=== PATIENT | male | born 1990 | race Caucasian/White ===

== ENCOUNTER 2019-06-05 22:15 | Emergency (ER) | payer SELFPAY ==
--- NOTE | 2019-06-05 22:34 | EDM.PDOC ---
ED HPI GENERAL MEDICAL PROBLEM - General Chief Complaint: ENT Problem Stated Complaint: Throat pain, dizziness Time Seen by Provider: 06/05/19 22:20 Source of Information: Reports: Patient History Limitations: Reports: No Limitations - History of Present Illness INITIAL COMMENTS - FREE TEXT/NARRATIVE: Patient presents to ER with complaints of a sore throat for the last 24 hours. Has had fevers today. States difficult to swallow, drank root beer as he read somewhere that would help but got no relief. He admits to mild sinus congestion and ear pain. Chest feels tight. No cough or wheezing. Has been exposed "all week to influenza B" in the household he is staying at. Onset: Gradual Duration: Hour(s): Location: Reports: Head, Chest Quality: Reports: Burning Severity: Moderate Improves with: Reports: None Worsens with: Reports: Eating Associated Symptoms: Reports: Fever/Chills, Shortness of Breath. 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 [No Known Home Meds] 06/05/19 [History] Past Medical History - Past Health History Medical/Surgical History: Denies Medical/Surgical History Social & Family History - Tobacco Use Smoking Status *Q: Current Every Day Smoker ED ROS ENT - Review of Systems Review Of Systems: See Below Constitutional: Reports: Fever, Chills, Malaise, Fatigue. Denies: Weakness, Decreased Appetite HEENT: Reports: Ear Pain, Sinus Problem, Throat Pain Respiratory: Reports: Shortness of Breath, Pleuritic Chest Pain. Denies: Cough Cardiovascular: Denies: Chest Pain, Edema, Lightheadedness Endocrine: Reports: Fatigue GI/Abdominal: Denies: Abdominal Pain, Nausea, Vomiting : Reports: No Symptoms Musculoskeletal: Reports: No Symptoms Skin: Reports: No Symptoms Neurological: Reports: No Symptoms Psychiatric: Reports: No Symptoms ED EXAM, ENT - Physical Exam Exam: See Below Exam Limited By: No Limitations General Appearance: Alert, WD/WN, No Apparent Distress Ears: Normal External Exam, Normal TMs Nose: Normal Inspection, Normal Mucousa, Nasal Discharge Mouth/Throat: Pharyngeal Erythema, Tonsillar Swelling Head: Normocephalic Neck: Normal Inspection, Supple, Lymphadenopathy (L), Lymphadenopathy (R) Respiratory/Chest: No Respiratory Distress, Lungs Clear, Normal Breath Sounds Cardiovascular: Regular Rate, Rhythm Neurological: Alert, Oriented Skin: Warm, Dry Course - Vital Signs Last Recorded V/S: Last Vital Signs Temp 99.3 F 06/05/19 22:15 Pulse 116 H 06/05/19 22:15 Resp 16 06/05/19 22:15 BP 130/97 H 06/05/19 22:15 Pulse Ox 96 06/05/19 22:15 - Orders/Labs/Meds Orders: Active Orders 24 hr Category Date Time Status INFLUENZA A+B AG SCREEN [RM] Stat Lab 06/05/19 22:32 Received Labs: Laboratory Tests 06/05/19 Range/Units 22:30 POC Group A Strep Rpd Positive H (NEGATIVE) - Re-Assessments/Exams Free Text/Narrative Re-Assessment/Exam: 06/05/19 23:01 Positive strep screen, influenza negative. Departure - Departure Time of Disposition: 23:02 Disposition: Home, Self-Care 01 Condition: Fair Clinical Impression: Strep pharyngitis - Discharge Information *PRESCRIPTION DRUG MONITORING PROGRAM REVIEWED*: No *COPY OF PRESCRIPTION DRUG MONITORING REPORT IN PATIENT [place]STA: No Instructions: Strep Throat Forms: ED Department Discharge Additional Instructions: 1. rest 2. Push fluids 3. Alternate tylenol with ibuprofen for fever or discomfort 4. Cepacol lozenges for discomfort 5. Zithromax 250 mg- 2 tabs tonight, one tab daily for 4 days 6. Follow up with PCP if persisting concerns. Sepsis Event Note - Evaluation Sepsis Screening Result: No Definite Risk - Focused Exam Vital Signs: Vital Signs Temp Pulse Resp BP Pulse Ox 06/05/19 22:15 99.3 F 116 H 16 130/97 H 96 Date Exam was Performed: 06/05/19 Time Exam was Performed: 22:52 - My Orders Last 24 Hours: My Active Orders 06/05/19 22:32 INFLUENZA A+B AG SCREEN [RM] Stat - Assessment/Plan Last 24 Hours: My Active Orders 06/05/19 22:32 INFLUENZA A+B AG SCREEN [RM] Stat
[2019-06-05] MEDS ORDERED: Take Home: Azithromycin 250 MG, 2 Tab Pack PO ONE (22:52)
== END 2019-06-05 23:09 | disposition home or self-care (01) ==
LOC: VM.ED 22:15
DX: F17.200 Nicotine dependence, unspecified, uncomplicated (principal); Z88.0 Allergy status to penicillin; Z88.5 Allergy status to narcotic agent; J02.0 Streptococcal pharyngitis
CPT/HCPCS: 87804; 87880; 99283; A9270

== ENCOUNTER 2019-08-20 21:54 | Emergency (ER) | payer BC, OTHER ==
[2019-08-20] MEDS ORDERED: Ibuprofen 200 MG Tab PO STA (22:13)
--- NOTE | 2019-08-20 22:16 | EDM.PDOC ---
ED HPI GENERAL MEDICAL PROBLEM - General Stated Complaint: right foot injury Time Seen by Provider: 08/20/19 22:10 Source of Information: Reports: Patient History Limitations: Reports: No Limitations - History of Present Illness INITIAL COMMENTS - FREE TEXT/NARRATIVE: Patient comes emergency department today with complaints of injury to his right foot. About 1830 hrs. tonight the patient was carrying a large piece of plywood when he dropped it transversely over the dorsum of his foot. He tried to walk it off but the pain is getting worse. He has not tried any thing for pain. He continues to wear his cowboy boot. He denies any paresthesia. He denies any other injury other than to the dorsum of his foot. - Related Data Allergies Allergy/AdvReac Type Severity Reaction Status Date / Time codeine Allergy Cannot Verified 06/05/19 22:30 Remember Penicillins Allergy Respiratory Verified 06/05/19 22:30 Distress Home Meds: Home Meds . [No Known Home Meds] 06/05/19 [History] Past Medical History - Past Health History Medical/Surgical History: Denies Medical/Surgical History - Past Surgical History HEENT Surgical History: Reports: Oral Surgery Other HEENT Surgeries/Procedures: Sarles tooth removal. Review of Systems - Review of Systems Review Of Systems: Comprehensive ROS is negative, except as noted in HPI. ED EXAM, GENERAL - Physical Exam Exam: See Below Exam Limited By: No Limitations General Appearance: Alert, WD/WN, No Apparent Distress Respiratory/Chest: No Respiratory Distress Cardiovascular: Normal Peripheral Pulses Peripheral Pulses: 2+: Radial (L), Radial (R), Posterior Tibial (L), Posterior Tibial (R), Dorsalis Pedis (L), Dorsalis Pedis (R) Extremities: No: Normal Inspection (Examination of the right foot on the dorsum on the distal aspect of the right metatarsals there is area of bruising and swelling primarily from the third fourth and fifth toe. No breaks in the skin. He is able to flex and extend at the ankle and the joints of the toes appropriately. CMS is intact appropriately.) Neurological: Alert, Oriented, Normal Cognition, No Motor/Sensory Deficits Psychiatric: Normal Affect, Normal Mood Skin Exam: Warm, Dry, Intact, Normal Color Course - Orders/Labs/Meds Orders: Active Orders 24 hr Category Date Time Status Foot Comp Min 3V Rt [CR] Stat Exams 08/20/19 22:13 Taken Meds: Medications Discontinued Medications Generic Name Dose Route Start Last Admin Trade Name Lizzie PRN Reason Stop Dose Admin Ibuprofen 600 mg 08/20/19 22:13 Motrin PO 08/20/19 22:14 NOW STA - Radiology Interpretation Free Text/Narrative:: xray negative per radiology. - Re-Assessments/Exams Free Text/Narrative Re-Assessment/Exam: 08/20/19 22:30 600mg Ibuprofen orally. Xray initially reviewed extemporaneously by myself soft tissue swelling with no fracture or dislocation. Harjit wrap for comfort to the foot. I reviewed the negative x-ray with the patient. Conservative management at this time. He is comfortable with this plan his questions are answered. Departure - Departure Time of Disposition: 22:30 Disposition: Home, Self-Care 01 Clinical Impression: Contusion of foot, right Qualifiers: Encounter type: initial encounter Qualified Code(s): S90.31XA - Contusion of right foot, initial encounter - Discharge Information Instructions: How to Use Cold Therapy, [id number], Contusion, [id number], Foot Contusion, [id number] Forms: ED Return to Work/School Form Additional Instructions: Tylenol and or Ibuprofen as need for pain. RICE therapy as per discharge instructions. HARJIT wrap for comfort. Return to the ED if new or worsening symptoms. Follow up with PCP or ortho in 7 days if not improving sooner if worse. Sepsis Event Note - Focused Exam Date Exam was Performed: 08/20/19 Time Exam was Performed: 22:30 - My Orders Last 24 Hours: My Active Orders 08/20/19 22:13 Foot Comp Min 3V Rt [CR] Stat - Assessment/Plan Last 24 Hours: My Active Orders 08/20/19 22:13 Foot Comp Min 3V Rt [CR] Stat Assessment:: Contusion of the dorsum of the right foot. Plan: Tylenol and or Ibuprofen as need for pain. RICE therapy as per discharge instructions. HARJIT wrap for comfort. Return to the ED if new or worsening symptoms. Follow up with PCP or ortho in 7 days if not improving sooner if worse.
--- NOTE | 2019-08-21 06:38 | CR ---
[id number] RAD/RAD Foot Right 3V Min Exam: RAD Foot Right 3V Min Indication:BLUNT INJURY TO DORSUM OF THE RIGHT FOOT Comparison: No prior imaging for comparison. Discussion: Soft tissue swelling along the dorsal aspect of the right foot. No underlying acute fracture or dislocation. No AVN or erosive changes. Lateral view demonstrates mild enthesopathy of the Achilles tendon and plantar fascia at their calcaneal attachments. Tiny os trigonum. Impression: Soft tissue swelling along the dorsal forefoot. No fracture or dislocation. Brad Rick MD 08/21/19 0638 Thank you for allowing us to participate in the care of your patient.
== END 2019-08-20 22:48 | disposition home or self-care (01) ==
LOC: VM.ED 21:54
DX: S90.31XA Contusion of right foot, initial encounter (principal); Z88.5 Allergy status to narcotic agent; Z88.0 Allergy status to penicillin; W20.8XXA Other cause of strike by thrown, projected or falling object, initial encounter
CPT/HCPCS: 73630-RT; 99283-25; 99283-GF